=== PATIENT | male | born 1975 | race Two or more races ===

== ENCOUNTER 2019-10-20 06:00 | Day surgery (SDC) | payer OTHER ==
[2019-10-20] MEDS ORDERED: PEPCID AC20 MG PO (08:43)
== END 2019-10-20 10:15 | disposition home or self-care (01) ==
LOC: AMB-ENDOS 06:00
PROVIDERS: ATTEND Surgery
DX: K29.50 Unspecified chronic gastritis without bleeding (principal); K44.9 Diaphragmatic hernia without obstruction or gangrene; Z20.828 Contact with and (suspected) exposure to other viral communicable diseases